=== PATIENT | female | born 2000 | race Caucasian/White ===

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

== ENCOUNTER 2020-07-01 10:35 | Emergency (ER) | payer OTHER ==
[~2020-07-01] VITALS: Ht 157.5 cm; Wt 54.4 kg
[~2020-07-01 10:35] MED LIST: LACTULOSE20 GM/301 ORAL; PEPCID AC10 MG PO
[2020-07-01] MEDS ORDERED: AUBRA EQ-28 TA1 EACH PO (10:52)
[2020-07-01 10:55] VITALS: BP 126/74
--- NOTE | 2020-07-01 10:55 | NUR ---
ED Nurse Note: Pt walked in to ED from home c/o "worm" in stool after BM; Denies any N/V, fever, chills or abdominal pain. AAOx4, no SOB. VSS. ERMD at bedside.
[2020-07-01 11:05] VITALS: BP 126/74
--- NOTE | 2020-07-01 11:05 | NUR ---
ED Nurse Note: Pt cleared by ERMD for discharge. DC instructions/prescription was given and explained to pt and verbalized understanding of teachings. All medical deviecs such as ID band removed. Pt is AAO x4, ambulatory and left with all personal belongings.
--- NOTE | 2020-07-01 11:16 | Emergency Room Report ---
History of Present Illness General Chief Complaint: General Complaint Source: Patient Present Illness HPI Patient is a 19-year-old female denies any significant past medical history who presents to the ER complaining of feeling warm. Patient states that she had some rectal fullness yesterday and this morning had a bowel movement and noticed a thin white worm in her stool. She denies any fever or chills. She denies any changes to her weight. She denies any nausea or vomiting. She denies any abdominal pain. She denies any recent travel or history of similar symptoms in the past. Patient brought her stool and a picture which demonstrates a white pinworm looking warm and her feces. Allergies: Coded Allergies: No Known Allergies (Unverified , 07/18/18) COVID-19 Screening Contact w/high risk pt: No Experienced COVID-19 symptoms?: No COVID-19 Testing performed RESAW FEEDER: No Patient History Last Menstrual Period: 06/25/20 Reviewed Nursing Documentation: PMH: Agreed; PSxH: Agreed Nursing Documentation-PMH Past Medical History: No Stated History Review of Systems All Other Systems: negative except mentioned in HPI Physical Exam Vital Signs Date Time Temp Pulse Resp B/P (MAP) Pulse Ox O2 Delivery O2 Flow Rate FiO2 07/01/20 10:48 98.4 99 16 126/74 (91) 99 Room Air Sp02 EP Interpretation: reviewed, normal General Appearance: no apparent distress, alert, GCS 15, non-toxic Head: normocephalic, atraumatic Eyes: bilateral eye normal inspection, bilateral eye PERRL ENT: hearing grossly normal, normal pharynx, no angioedema, normal voice Neck: full range of motion, supple/symm/no masses Respiratory: chest non-tender, lungs clear, normal breath sounds, speaking full sentences Cardiovascular #1: regular rate, rhythm, no edema Gastrointestinal: normal bowel sounds, non tender, soft, non-distended, no guarding, no rebound Rectal: deferred Genitourinary: no CVA tenderness Musculoskeletal: normal range of motion Neurologic: lightning rod erector III-XII nml as tested, oriented x3 Psychiatric: no suicidal/homicidal ideation Skin: no rash Lymphatic: no adenopathy Medical Decision Making Diagnostic Impression: Primary Impression: Pinworm infection ER Course Patient given a prescription for mebendazole 100 mg once now and in 3 weeks. After discussing risks and benefits of further diagnostics, treatment plans, as well as indications for and risks of admission, the patient is agreeable to being discharged home. I have explained that their evaluation and treatment in the emergency department today is an important step towards them achieving better health but that their evaluation today is not intended to replace further evaluation and treatment by a physician in their local clinic. I have explained that while the current findings suggest no immediate life threatening emergency they will require further evaluation and treatment by a physician of their choice in their area. They understand that it will be necessary for them to review the final reports of their ED visit with their clinic physician. We have reviewed indications for return to the Emergency Department. I have explained that additional time may need to pass and/or additional testing as an outpatient may be necessary before a definitive diagnosis can be made. They tell me they are willing to follow up as instructed within the timeframe I recommend. They appear to understand what we discussed. Additionally they understand that if they are unable to be seen by an outpatient physician they are welcome, and in fact should, return to the Emergency Department for a repeat evaluation. The patient is stable at time of discharge. Last Vital Signs Date Time Temp Pulse Resp B/P (MAP) Pulse Ox O2 Delivery O2 Flow Rate FiO2 07/01/20 11:05 98.4 99 16 126/74 99 Room Air Disposition: HOME, SELF-CARE Condition: Stable Referrals: [facility] Edmond Garg. [facility] Patient Instructions: Pinworms, Pediatric Additional Instructions: The patient was provided with discharge instructions, notified to follow-up with a primary care doctor and or specialist in the next 24-48 hours, and to return to the ED if they have worsening of their symptoms. Please note that this report is being documented using [employer] technology. This can lead to erroneous entry secondary to incorrect interpretation by the dictating instrument. Serenity Potts M.D. Jul 01, 2020 11:16
== END 2020-07-01 11:05 | disposition home or self-care (01) ==
LOC: EMR 10:55
DX: B80 Enterobiasis (principal)
CPT/HCPCS: 99282

== ENCOUNTER 2020-10-24 08:23 | Emergency (ER) | payer BC, OTHER ==
[~2020-10-24] VITALS: Ht 157.5 cm; Wt 54.4 kg
[~2020-10-24 08:23] MED LIST changes: +AUBRA EQ-28 TA1 EACH PO
[2020-10-24 08:26] VITALS: BP 122/84
--- NOTE | 2020-10-24 08:41 | Emergency Room Report ---
History of Present Illness General Chief Complaint: Pelvic Pain Source: Patient Present Illness HPI Disclaimer: Please note that this report is being documented using [employer] technology. This can lead to erroneous entry secondary to incorrect interpretation by the dictating instrument. HPI: 20-year-old female history of ovarian cyst presents for pelvic pain. Symptoms present 2 days. She states she has a cramping and aching feeling in the suprapubic and left lower quadrant over the past 2 days. Mild tenderness in the back as well. Reports nausea but no vomiting. Denies diarrhea. Denies vaginal bleeding or vaginal discharge. LMP was 3 weeks ago. She states she has a history of ovarian cyst with prior rupture that typically exacerbate 1 week prior to beginning menstrual cycle. She took Tylenol and Motrin. She reports having a low-grade fever yesterday but this is now resolved. Denies chest pain, palpitations, shortness of breath, cough. PMH: Ovarian cyst PSH: Denied Allergies: Denied Social Hx: Reviewed Allergies: Coded Allergies: No Known Allergies (Unverified , 07/18/18) COVID-19 Screening Contact w/high risk pt: No Experienced COVID-19 symptoms?: No COVID-19 Testing performed SENIOR VICE PRESIDENT AND CHIEF INFORMATION OFFICER: No Patient History Last Menstrual Period: 09/30/20 Now: No Nursing Documentation-PMH Past Medical History: No History, Except For Review of Systems All Other Systems: negative except mentioned in HPI Physical Exam Vital Signs Date Time Temp Pulse Resp B/P (MAP) Pulse Ox O2 Delivery O2 Flow Rate FiO2 10/24/20 08:26 99.0 120 18 122/84 (97) 97 Room Air General: Awake and alert, appears uncomfortable HEENT: NC/AT. EOMI. Cardiovascular: RRR. S1 and S2 normal. No murmur appreciated Resp: Normal work of breathing. No cough, wheezing or crackles appreciated Abdomen: Abdomen is soft, nondistended. Tender palpation suprapubic and left lower quadrant. No guarding. No peritoneal signs. Otherwise abdomen is nontender and soft. Skin: Intact. No abrasions, laceration or rash over the exposed skin MSK: Normal tone and bulk. Moving all extremities. No obvious deformity. Neuro: Awake and alert. Mentating appropriately. Medical Decision Making Diagnostic Impression: Primary Impression: UTI (urinary tract infection) ER Course 20 year-old female presents for evaluation of pelvic discomfort. Differential includes was not limited to UTI, pyelonephritis, ectopic , ovarian cyst, ovarian torsion among others. There is ongoing for several days of low lam spicion for ovarian torsion. Urinalysis concerning for acute urinary tract infection and patient has mild left-sided CVA tenderness which may represent a early pyelonephritis. She is otherwise well-appearing, afebrile and found resting comfortably on reevaluation. Do not believe she requires emergent blood work or imaging at this time. Will start on antibiotics and Pyridium. Patient will follow up with PMD. Strict return precautions discussed. She understands and agrees with this treatment plan. Laboratory Tests Test 10/24/20 08:50 Urine Color Yellow Urine Appearance Cloudy Urine pH 6 (4.5-8.0) Urine Specific [place] 1.015 (1.005-1.035) Urine Protein 2+ (NEGATIVE) H Urine Glucose (UA) Negative (NEGATIVE) Urine Ketones 4+ (NEGATIVE) H Urine Blood 3+ (NEGATIVE) H Urine Nitrite Positive (NEGATIVE) H Urine Bilirubin Negative (NEGATIVE) Urine Urobilinogen Normal MG/DL (0.0-1.0) Urine Leukocyte Esterase 2+ (NEGATIVE) H Urine RBC 2-4 /HPF (0 - 2) H Urine WBC 10-15 /HPF (0 - 2) H Urine Squamous Epithelial Cells Moderate /LPF (NONE/OCC) H Urine Bacteria Many /HPF (NONE) H Urine HCG, Qualitative Negative (NEGATIVE) Last Vital Signs Date Time Temp Pulse Resp B/P (MAP) Pulse Ox O2 Delivery O2 Flow Rate FiO2 10/24/20 08:26 99.0 120 18 122/84 (97) 97 Room Air Disposition: HOME, SELF-CARE Condition: Stable Scripts Phenazopyridine Hcl* (PYRIDIUM*) 200 Mg Tablet 200 MG ORAL THREE TIMES A DAY, #14 TAB 0 Refills Prov: Deshawn Garsia MD 10/24/20 Ciprofloxacin Hcl* (CIPROFLOXACIN HCL*) 500 Mg Tablet 500 MG ORAL Q12H for 7 Days, #14 TAB 0 Refills Prov: Deshawn Garsia MD 10/24/20 Deshawn Garsia MD Oct 24, 2020 08:41
[2020-10-24 08:57] VITALS: BP 122/84
[2020-10-24 09:04] LABS: APPEARANCE,URINE CLOUDY; BILIRUBIN, URINE NEGATIVE (NEGATIVE); GLUCOSE, URINE (UA) NEGATIVE (NEGATIVE); KETONES,URINE 4+ (NEGATIVE); LEUKOCYTE ESTERASE ,URINE 2+ (NEGATIVE); NITRITE,URINE POSITIVE (NEGATIVE); PH,URINE 6 (4.5-8.0); PROTEIN,URINE 2+ (NEGATIVE); UROBILINOGEN,URINE NORMAL MG/DL (0.0-1.0)
[2020-10-24 09:21] LABS: COLOR,URINE YELLOW
[2020-10-24] MEDS ORDERED: CIPROFLOXACIN500 M2 ORAL (09:28)
[2020-10-24] MEDS ORDERED: PHENAZOPYRIDIN200 MG ORAL (09:28)
== END 2020-10-24 09:41 | disposition home or self-care (01) ==
LOC: EMR 08:50
DX: N39.0 Urinary tract infection, site not specified (principal)
CPT/HCPCS: 81003; 81025; 87086; 87181; 99283